=== PATIENT | male | born 1990 | race Caucasian/White ===

== ENCOUNTER 2018-06-17 19:03 | Emergency (ER) | payer OTHER, SELFPAY ==
[2018-06-17] MEDS ORDERED: Levofloxacin 750mg IV 750 MG/150 ML BAG IV ONE (19:53)
--- NOTE | 2018-06-17 20:21 | RAD REPORT ---
EXAM DESCRIPTION: RAD - Chest Single View - 06/17/2018 7:53 pm CLINICAL HISTORY: COUGH Chest pain. COMPARISON: No comparisons FINDINGS: Portable technique limits examination quality. The lungs are underinflated with prominent pulmonary interstitial lung markings noted bilaterally. Th e heart is normal in size. No displaced fractures. IMPRESSION: Mild interstitial pneumonia is likely present bilaterally.
[2018-06-17 20:36] LABS: ALT/SGPT 49 U/L (12-78); AST/SGOT 46 U/L (15-37); Albumin 3.6 g/dL (3.4-5.0); Alkaline Phosphatase 37 U/L (45-117); BUN Blood Urea Nitrogen 11 mg/dL (7-18); Bicarbonate 27 mmol/L (21-32); Bilirubin Direct < 0.1 mg/dL (0-0.2); Bilirubin Total 0.8 mg/dL (0.2-1.0); CKMB Creatine Kinase MB 3.7 ng/mL (0.3-3.6); Creatine Phosphokinase 525 U/L (39-308); Glucose Level 78 mg/dL (74-106); Magnesium 2.1 mg/dL (1.8-2.4); NT PRO-BNP 29 pg/mL (<125); Potassium 4.5 mmol/L (3.5-5.1); Protein, Total 7.6 g/dL (6.4-8.2); Sodium Level 139 mmol/L (136-145); Troponin (Emerg Dept Use Only) < 0.02 ng/mL (0.0-0.045)
[2018-06-17 20:44] LABS: Urine Blood NEGATIVE (NEG); Urine Glucose NEGATIVE (NEG); Urine Protein NEGATIVE (NEG); Urine Specific Gravity >1.030 (1.005-1.030)
--- NOTE | 2018-06-17 21:12 | ER ---
Nurse's Notes [facility] Name: Fernandez Major Age: 27 yrs Sex: Male : 1990 Arrival Date: 06/17/2018 Time: 19:08 Bed 11 Private MD: None, None Diagnosis: Pneumonia in diseases classified elsewhere Presentation: 06/17 19:11 Presenting complaint: Patient states: that he has resp infection that he is being fc treated for x 2 week with steroids and Zpack. Has had no improvement and was unable to get into PCP and was told to come to ER. Hx of pneumonia. Continues to have cough, congestion with green drainage, right ear pain and fever. Transition of care: patient was not received from another setting of care. Onset of symptoms was May 2018. Risk Assessment: Do you want to hurt yourself or someone else? Patient reports no desire to harm self or others. Initial Sepsis Screen: Does the patient meet any 2 criteria?. Care prior to arrival: Medication(s) given: Tylenol, last at 1700. 19:11 Method Of Arrival: Ambulatory fc 19:11 Acuity: TITA 3 fc 20:10 Initial Sepsis Screen: Does the patient have a suspected source of infection? No. mg2 Patient's initial sepsis screen is negative. Triage Assessment: 19:16 General: Appears uncomfortable, well groomed, Behavior is calm, cooperative, fc appropriate for age. Pain: Complains of pain in right lung and right ear Pain currently is 3 out of 10 on a pain scale. Quality of pain is described as aching, Is intermittent, Aggravated by deep breathing. EENT: Reports pain in right ear. Neuro: Level of Consciousness is awake, alert, obeys commands, Oriented to person, place, time, situation. Cardiovascular: No deficits noted. Respiratory: Reports shortness of breath cough that is productive, Breath sounds are clear bilaterally. Onset: The symptoms/episode began/occurred gradually, the patient has mild shortness of breath. GI: No deficits noted. : No deficits noted. Derm: Skin is pink, warm \T\ dry. Musculoskeletal: Circulation, motion, and sensation intact. Capillary refill < 3 seconds, Range of motion: intact in all extremities. Historical: - Allergies: 19:15 Morphine; fc - Home Meds: 19:15 lisinopril 20 mg Oral tab 1 tab as needed for high bp [Active]; [place] 10-325 mg Oral fc tab 1 tab prn bid [Active]; - PMHx: 19:15 Pneumonia; Bronchitis; Hypertension; Back pain; broken back; fc 19:41 Myocardial infarction; bb - PSHx: 19:15 Knee surgery; fc 19:16 Tonsillectomy; fc - Immunization history:: Last tetanus immunization: up to date. - Social history:: Smoking status: Patient/guardian denies using tobacco, the patient reports quitting approximately .1 years ago, Patient/guardian denies using alcohol, street drugs, The patient lives with family. - Ebola Screening: : Patient negative for fever greater than or equal to 101.5 degrees Fahrenheit, and additional compatible Ebola Virus Disease symptoms Patient denies exposure to infectious person Patient denies travel to an Ebola-affected area in the 21 days before illness onset. - Family history:: not pertinent. Screenin:25 Abuse screen: Denies threats or abuse. Denies injuries from another. Nutritional mg2 screening: No deficits noted. Tuberculosis screening: No symptoms or risk factors identified. Fall Risk None identified. Assessment: 19:33 General: Appears in no apparent distress. comfortable, Behavior is calm, cooperative. mg2 Pain: Complains of pain in right ear Pain does not radiate. Pain currently is 3 out of 10 on a pain scale. Quality of pain is described as aching, Pain began gradually, Is intermittent. Neuro: Level of Consciousness is awake, alert, obeys commands, Oriented to person, place, time, situation. Cardiovascular: Capillary refill < 3 seconds Patient's skin is warm and dry. Respiratory: Airway is patent Respiratory effort is even, unlabored, Respiratory pattern is regular, symmetrical, Breath sounds are clear bilaterally. GI: No signs and/or symptoms were reported involving the gastrointestinal system. : No signs and/or symptoms were reported regarding the genitourinary system. EENT: Reports pain in right ear. Derm: Skin is intact, Skin is pink, warm \T\ dry. normal. Musculoskeletal: Circulation, motion, and sensation intact. 20:25 Reassessment: Patient appears in no apparent distress at this time. Patient and/or mg2 family updated on plan of care and expected duration. Pain level reassessed. Patient is alert, oriented x 3, equal unlabored respirations, skin warm/dry/pink. 21:16 Reassessment: patient is still on antibiotic. mg2 Vital Signs: 19:17 BP 156 / 100; Pulse 99; Resp 22; Temp 99.0(O); Pulse Ox 98% on R/A; Weight 154.67 kg fc (R); Height 6 ft. 8 in. (203.20 cm) (R); Pain 3/10; 21:18 BP 163 / 90; Pulse 90; Resp 18; Temp 98.6(O); Pulse Ox 100% ; Pain 0/10; mg2 19:17 Body Mass Index 37.46 (154.67 kg, 203.20 cm) ED Course: 19:08 Patient arrived in ED. mr 19:09 None, None is Private Physician. mr 19:13 Triage completed. fc 19:17 Arm band placed on Patient placed in an exam room, on a stretcher. fc 19:24 Adam Giron RN is Primary Nurse. mg2 19:25 Shiva Gibbs MD is Attending Physician. ma2 19:53 XRAY Chest (1 view) In Process Unspecified. EDMS 20:10 No provider procedures requiring assistance completed. Inserted saline lock: 20 gauge mg2 in right antecubital area, using aseptic technique. Blood collected. 21:35 IV discontinued, intact, bleeding controlled, No redness/swelling at site. Pressure mg2 dressing applied. 21:36 Patient has correct armband on for positive identification. mg2 Administered Medications: 19:57 Drug: levofloxacin 750 mg Volume: 150 ml; Route: IVPB; Infused Over: 90 mins; Site: mg2 left antecubital; 21:36 Follow up: Response: No adverse reaction; IV Status: Completed infusion mg2 Outcome: 21:11 Discharge ordered by . ma2 21:35 Discharged to home ambulatory, with family. mg2 21:35 Condition: good 21:35 Discharge instructions given to patient, family, Instructed on discharge instructions, follow up and referral plans. medication usage, Demonstrated understanding of instructions, follow-up care, medications, Prescriptions given X 1. 21:36 Patient left the ED. mg2 Signatures: Dispatcher [employer] EDOK Kiley Mehta Rose Varela RN RN Radah Atwood RN RN Shiva Gibbs MD MD laAdam Freitas RN RN mg2 Corrections: (The following items were deleted from the chart) 21:29 21:18 Resp 18bpm; Pulse Ox 100%; Temp 98.6F Oral; Pain 0/10; mg2 mg2
--- NOTE | 2018-06-17 21:12 | EDPHYS ---
Physician Documentation [facility] Name: Fernandez Major Age: 27 yrs Sex: Male : 1990 Arrival Date: 06/17/2018 Time: 19:08 Bed 11 Private MD: None, None ED Physician Shiva Gibbs HPI: 06/17 19:40 This 27 yrs old Male presents to ER via Ambulatory with complaints of Cough, ma2 Congestion, Fever. 19:40 The patient or guardian reports cough. Onset: The symptoms/episode began/occurred ma2 gradually, 2 day(s) ago. Severity of symptoms: At their worst the symptoms were moderate, in the emergency department the symptoms are unchanged. Modifying factors: The symptoms are alleviated by. Associated signs and symptoms: Pertinent positives: sore throat, Pertinent negatives: chest pain, diarrhea, ear ache, fever. Associated signs and symptoms: Pertinent positives: fever. The patient has experienced similar episodes in the past. Historical: - Allergies: 19:15 Morphine; fc - Home Meds: 19:15 lisinopril 20 mg Oral tab 1 tab as needed for high bp [Active]; [place] 10-325 mg Oral fc tab 1 tab prn bid [Active]; - PMHx: 19:15 Pneumonia; Bronchitis; Hypertension; Back pain; broken back; fc 19:41 Myocardial infarction; bb - PSHx: 19:15 Knee surgery; fc 19:16 Tonsillectomy; fc - Immunization history:: Last tetanus immunization: up to date. - Social history:: Smoking status: Patient/guardian denies using tobacco, the patient reports quitting approximately .1 years ago, Patient/guardian denies using alcohol, street drugs, The patient lives with family. - Ebola Screening: : Patient negative for fever greater than or equal to 101.5 degrees Fahrenheit, and additional compatible Ebola Virus Disease symptoms Patient denies exposure to infectious person Patient denies travel to an Ebola-affected area in the 21 days before illness onset. - Family history:: not pertinent. ROS: 19:40 Constitutional: Positive for chills, fatigue. ma2 19:40 Respiratory: Positive for cough, Negative for pleurisy, wheezing. 19:40 All other systems are negative. Exam: 19:40 Constitutional: This is a well developed, well nourished patient who is awake, alert, ma2 and in no acute distress. Head/Face: Normocephalic, atraumatic. Chest/axilla: Normal chest wall appearance and motion. Nontender with no deformity. No lesions are appreciated. Cardiovascular: Regular rate and rhythm with a normal S1 and S2. No gallops, murmurs, or rubs. Normal PMI, no JVD. No pulse deficits. Respiratory: Lungs have equal breath sounds bilaterally, clear to auscultation and percussion. No rales, rhonchi or wheezes noted. No increased work of breathing, no retractions or nasal flaring. Neuro: Awake and alert, GCS 15, oriented to person, place, time, and situation. Cranial nerves II-XII grossly intact. Motor strength 5/5 in all extremities. Sensory grossly intact. Cerebellar exam normal. Normal gait. Vital Signs: 19:17 BP 156 / 100; Pulse 99; Resp 22; Temp 99.0(O); Pulse Ox 98% on R/A; Weight 154.67 kg fc (R); Height 6 ft. 8 in. (203.20 cm) (R); Pain 3/10; 21:18 BP 163 / 90; Pulse 90; Resp 18; Temp 98.6(O); Pulse Ox 100% ; Pain 0/10; mg2 19:17 Body Mass Index 37.46 (154.67 kg, 203.20 cm) fc MDM: 19:25 Patient medically screened. [facility] 19:40 Differential Diagnosis: Bronchitis Influenza Upper Respiratory Infection Pneumonia. [facility] 21:07 Data reviewed: vital signs, nurses notes, radiologic studies. Test interpretation: by [facility] ED physician or midlevel provider: ECG, plain radiologic studies. Counseling: I had a detailed discussion with the patient and/or guardian regarding: the historical points, exam findings, and any diagnostic results supporting the discharge/admit diagnosis, the presence of at least one elevated blood pressure reading (>120/80) during this emergency department visit, the need for outpatient follow up. Response to treatment: the patient's symptoms have mildly improved after treatment. 06/17 19:37 Order name: Basic Metabolic Panel; Complete Time: 20:40 [facility] 06/17 19:37 Order name: Ckmb; Complete Time: 20:40 [facility] 06/17 19:37 Order name: CPK; Complete Time: 20:40 [facility] 06/17 19:37 Order name: LFT's; Complete Time: 20:40 ca2 06/17 19:37 Order name: Magnesium; Complete Time: 20:40 [facility] 06/17 19:37 Order name: NT PRO-BNP; Complete Time: 20:40 ca2 06/17 19:37 Order name: Troponin (emerg Dept Use Only); Complete Time: 20:40 [facility] 06/17 19:37 Order name: XRAY Chest (1 view); Complete Time: 20:40 ca2 06/17 19:37 Order name: EKG; Complete Time: 19:38 ca06/17 20:12 Order name: Urine Dipstick--Ancillary (enter results); Complete Time: 21:07 [facility] 06/17 19:37 Order name: Cardiac monitoring; Complete Time: 19:56 [facility] 06/17 19:37 Order name: EKG - Nurse/Tech; Complete Time: 19:56 [facility] 06/17 19:37 Order name: IV Saline Lock; Complete Time: 19:56 [facility] 06/17 19:37 Order name: Labs collected and sent; Complete Time: 19:56 ca06/17 19:37 Order name: O2 Per Protocol; Complete Time: 19:57 ca06/17 19:37 Order name: O2 Sat Monitoring; Complete Time: 19:57 [facility] 06/17 19:37 Order name: Urine Dipstick-Ancillary (obtain specimen); Complete Time: 20:10 ma2 Administered Medications: 19:57 Drug: levofloxacin 750 mg Volume: 150 ml; Route: IVPB; Infused Over: 90 mins; Site: [facility] left antecubital; 21:36 Follow up: Response: No adverse reaction; IV Status: Completed infusion mg2 Disposition: 06/17/18 21:11 Discharged to Home. Impression: Pneumonia in diseases classified elsewhere. - Condition is Stable. - Discharge Instructions: Community-Acquired Pneumonia, Adult. - Prescriptions for Clindamycin HCl 300 mg Oral Capsule - take 1 capsule by ORAL route every 6 hours for 10 days; 40 capsule. - Medication Reconciliation Form, Thank You Letter, Antibiotic Education, Prescription Opioid Use form. - Follow up: Private Physician; When: Tomorrow; Reason: Continuance of care. - Problem is new. - Symptoms are unchanged. Signatures: Dispatcher [employer] EDMichelle Wonga, RN RN fc Radha Atwood RN RN bb Shiva Gibbs MD MD ma2 Adam Giron RN RN mg2 Corrections: (The following items were deleted from the chart) 21:36 21:11 06/17/2018 21:11 Discharged to Home. Impression: Pneumonia in diseases classified mg2 elsewhere. Condition is Stable. Forms are Medication Reconciliation Form, Thank You Letter, Antibiotic Education, Prescription Opioid Use. Follow up: Private Physician; When: Tomorrow; Reason: Continuance of care. Problem is new. Symptoms are unchanged. ma2
--- NOTE | 2018-06-18 11:03 | EKG ---
Test Date: 2018-06-17 Test Time: 19:58:34 Line Patroller: MEASUREMENT RESULTS: Intervals: Rate: 88 CA: 146 QRSD: 96 QT: 356 QTc: 430 Gordon: P: 44 CA: 146 QRS: 11 T: 25 INTERPRETIVE STATEMENTS: Normal sinus rhythm Minimal voltage criteria for LVH, may be normal variant Borderline ECG No previous ECG available for comparison Electronically Signed On 06-18-18 11:00:50 CDT by Nirmal Hardy
== END 2018-06-17 21:36 | disposition home or self-care (01) ==
LOC: ER 19:03
DX: J18.9 Pneumonia, unspecified organism (principal); I10 Essential (primary) hypertension; I25.2 Old myocardial infarction; Z88.5 Allergy status to narcotic agent
CPT/HCPCS: 71045; 80048; 80076; 81003; 82550; 82553; 83735; 83880; 84484; 93005; 96365; 96366; 99284